=== PATIENT | female | born 1960 | race Caucasian/White ===

== ENCOUNTER → 2023-03-31 | Outpatient (CLI) | payer OTHER ==
[~2023-03-31] MED LIST: Bactrim Ds Tab1 EACH PO; Hair, Skin & N1 EACH PO; INSUL100I SC; Keflex500 MG PO; Norco 5-325 Ta1 EACH PO; PROBIOTIC1 EAC1 PO; Percocet 10-321 EACH PO
[2023-03-31 12:48] LABS: Stool Occult Bld Immuno 1 Negative (NEGATIVE)
== END | disposition home or self-care (01) ==
LOC: LAB 08:42 → LAB SHORT 08:42 → LAB FUT 03-11 07:30
PROVIDERS: Physician Assistant
DX: Z12.11 Encounter for screening for malignant neoplasm of colon (principal)
CPT/HCPCS: G0328